=== PATIENT | female | born 2000 | race Two or more races ===

== ENCOUNTER 2021-12-25 17:56 | Emergency (ER) | payer OTHER ==
[~2021-12-25] VITALS: Ht 160 cm; Wt 72.6 kg
--- NOTE | 2021-12-25 18:13 | NUR ---
anxiety attack - started at 1530 today
[2021-12-25] MEDS ORDERED: LORAZEPAM 0.5 MG TABLET ONE (18:44)
--- NOTE | 2021-12-25 18:53 | NUR ---
PO ATIVAN GIVEN
[2021-12-25] MEDS ORDERED: LORAZEPAM 0.5 MG TABLET PO ONE (19:00)
[2021-12-25 19:06] VITALS: BP 142/76
--- NOTE | 2021-12-25 19:06 | NUR ---
Patient discharged to home in stable condition. Written and verbal after care instructions given. Patient verbalizes understanding of instruction.
== END 2021-12-25 19:07 | disposition home or self-care (01) ==
LOC: ER 18:04
DX: F41.0 Panic disorder [episodic paroxysmal anxiety] (principal); F41.9 Anxiety disorder, unspecified; F32.9 Major depressive disorder, single episode, unspecified

== ENCOUNTER 2024-12-11 04:24 | Emergency (ER) | payer OTHER ==
[~2024-12-11] VITALS: Ht 162.6 cm; Wt 79.4 kg
[2024-12-11] MEDS ORDERED: ACETAMINOPHEN ES 500 MG TABLET ONE (06:45)
[2024-12-11] MEDS ORDERED: LORAZEPAM 0.5 MG TABLET ONE (06:45)
[2024-12-11] MEDS ORDERED: IBUPROFEN 400 MG TABLET ONE (06:46)
[2024-12-11] MEDS: LORAZEPAM 0.5 MG TABLET PO ONE (07:14)
[2024-12-11] MEDS: ACETAMINOPHEN ES 500 MG TABLET PO ONE (07:15)
[2024-12-11] MEDS: IBUPROFEN 400 MG TABLET PO ONE (07:15)
[2024-12-11 07:20] VITALS: TEMP 98
[2024-12-11] MEDS ORDERED: NAPR-1009 PO (08:47)
[2024-12-11 09:01] VITALS: BP 126/85; O2SAT 97
== END 2024-12-11 09:02 | disposition home or self-care (01) ==
LOC: ER 04:35
DX: S09.90XA Unspecified injury of head, initial encounter (principal); F41.9 Anxiety disorder, unspecified; Y04.0XXA Assault by unarmed brawl or fight, initial encounter; Y93.89 Activity, other specified; Y92.89 Other specified places as the place of occurrence of the external cause; Y99.8 Other external cause status
CPT/HCPCS: 70450-TC; 72125-TC